=== PATIENT | female | born 1955 | race Caucasian/White ===

== ENCOUNTER 2020-05-03 09:35 | Day surgery (SDC) | payer OTHER ==
[~2020-05-03 09:35] MED LIST: Midazolam 1 MG/ML 2 ML SDV ONE; Propofol 200 MG/20 ML SDV ONE; fentaNYL 100 MCG/2 ML SDV ONE
[2020-05-03] MEDS ORDERED: Dextrose 5%-Lactated Ringers 1,000 ML IV SCH (10:15)
[2020-05-03] MEDS ORDERED: Propofol 200 MG/20 ML SDV ONE (11:50)
[2020-05-03 12:31] VITALS: PULSE 62
[2020-05-03] MEDS ORDERED: Ondansetron 4 MG Tab.DIS PO ONE (13:14)
[2020-05-03 13:35] VITALS: BP 144/86
--- NOTE | 2020-05-08 12:29 | OR ---
DATE OF PROCEDURE: 05/03/2020 SURGEON: Feliberto Coffey MD PREOPERATIVE DIAGNOSIS: Recurrent sigmoid colon diverticulitis. POSTOPERATIVE DIAGNOSIS: Left colonic diverticulosis with mild sigmoid colon diverticulitis. OPERATIVE PROCEDURE: Flexible colonoscopy. ANESTHESIA: IV sedation. INDICATIONS FOR PROCEDURE: A 64-year-old female presenting with some ongoing problems with sigmoid colon diverticulitis. This began as early as around [address] scan at that time showing acute diverticulitis. The patient reports that she has had 3 episodes of diverticulitis this year. Presently, has some very mild discomfort in the left lower quadrant. For diagnostic evaluation, the patient to undergo a colonoscopy. Potential risks including bleeding and perforation were discussed, and the patient wishes to proceed. DETAILS OF PROCEDURE: The patient was taken to the operating room and placed in a left lateral decubitus position. IV sedation was administered, after which the initial digital rectal exam was performed and was unremarkable. Colonoscope was passed into the rectum with retroflexion revealing uncomplicated hemorrhoidal columns. Scope was eventually passed to the level of the cecum. The prep was fairly good with only a small amount of liquid stool being present. The patient was noted to have quite extensive left colonic diverticulosis. In the midportion of the sigmoid colon, there was some edema and redness of the mucosa consistent with some smoldering inflammation, i.e. some smoldering diverticulitis. There was no purulence noted and no stricturing or other complications related to diverticular disease. The remainder of the examination was unremarkable with there being no areas of polyp formation or other signs of neoplasia. Scope was then withdrawn and the above findings reconfirmed, and the procedure was then concluded. The patient was taken to the recovery room in satisfactory condition. Plan will be to see the patient back on 05/09 and discuss treatment options. The patient appears to have a more or less possibly recurrent or perhaps persistent diverticulitis over the past years and may benefit from a segmental sigmoid colon resection. Feliberto Coffey MD /[id number]
== END 2020-05-03 13:58 | disposition home or self-care (01) ==
LOC: JP.SDS 09:35
PROVIDERS: ATTEND Surgery
DX: K57.32 Diverticulitis of large intestine without perforation or abscess without bleeding (principal); K64.9 Unspecified hemorrhoids
CPT/HCPCS: 45378; A9270; J2250; J2704; J3010; J7121

== ENCOUNTER 2023-05-04 06:17 | Day surgery (SDC) | payer MEDICARE ==
[2023-05-04 06:46] LABS: HEMATOCRIT 37.5 % (34.3-46.0); HEMOGLOBIN 12.5 g/dL (11.2-15.5); MEAN CORPUSCULAR HEMOGLOBIN 29.8 pg (31.6-35.5); MEAN CORPUSCULAR HGB CONC 33.3 g/dL (31.6-35.5); MEAN CORPUSCULAR VOLUME 89.3 fL (81.4-99.0); RED BLOOD CELL COUNT 4.2 M/uL (3.77-5.24); WHITE BLOOD CELL COUNT,WBC 5.7 K/uL (3.2-11.0)
[2023-05-04] MEDS ORDERED: Lactated Ringers 1,000 ML IV SCH (07:00)
[2023-05-04] MEDS ORDERED: Nozin Nasal Sanitizer NASBOTH SCH (07:00)
[2023-05-04 07:07] LABS: ALANINE AMINOTRANSFERASE,ALT 23 U/L (12-78); ALBUMIN 3.4 g/dL (3.4-5.0); ALKALINE PHOSPHATASE 28 U/L (46-116); ASPARTATE AMNIOTRANSFERASE,AST 14 U/L (15-37); BILIRUBIN TOTAL 0.5 mg/dL (0.2-1.0); BLOOD UREA NITROGEN,BUN 22 mg/dL (7-18); CALCIUM 8.9 mg/dL (8.5-10.1); CARBON DIOXIDE,CO2 29 mmol/L (21-32); CHLORIDE,CL 106 mmol/L (100-108); CREATININE 0.9 mg/dL (0.6-1.0); EST CRCL DRUG DOSING (CG) 50.86 mL/min; ESTIMATED GFR 71 mL/min (>60); GLUCOSE RANDOM 97 mg/dL (74-106); POTASSIUM,K 4.3 mmol/L (3.6-5.2); PROTEIN TOTAL,TP 6.8 g/dL (6.4-8.2); SODIUM,NA 141 mmol/L (140-148)
[2023-05-04] MEDS ORDERED: ceFAZolin 1 GM in Premix Bag 1 BAG IV ONE (07:15)
[2023-05-04] MEDS ORDERED: Midazolam 1 MG/ML 2 ML SDV ONE (07:16)
[2023-05-04] MEDS ORDERED: Propofol 200 MG/20 ML SDV ONE ×2 (07:16→08:51)
[2023-05-04] MEDS ORDERED: fentaNYL 100 MCG/2 ML SDV ONE ×2 (07:16→08:37)
[2023-05-04] MEDS ORDERED: Bupivacaine 0.5% 30 ML SDV ONE ×2 (07:16→07:20)
[2023-05-04] MEDS ORDERED: Acetaminophen/oxyCODONE 325-5 MG Tab PO PRN (10:45)
[2023-05-04 11:30] VITALS: BP 157/58; PULSE 66
== END 2023-05-04 11:37 | disposition home or self-care (01) ==
LOC: JP.SDS 06:17
PROVIDERS: ATTEND Specialist
DX: M75.111 Incomplete rotator cuff tear or rupture of right shoulder, not specified as traumatic (principal); M75.31 Calcific tendinitis of right shoulder; E03.9 Hypothyroidism, unspecified; E78.00 Pure hypercholesterolemia, unspecified; Z88.8 Allergy status to other drugs, medicaments and biological substances; E66.9 Obesity, unspecified
CPT/HCPCS: 29826; 29827; 36415; 80053; 85027; A9270; C1713; J0690; J2250; J2704; J3010; J3490; J7120

== ENCOUNTER 2025-02-24 20:09 | Emergency (ER) | payer MEDICARE ==
[2025-02-24 22:09] VITALS: BP 138/77; PULSE 76
== END 2025-02-24 22:05 | disposition home or self-care (01) ==
LOC: JP.ED 20:09
DX: S83.92XA Sprain of unspecified site of left knee, initial encounter (principal); E78.00 Pure hypercholesterolemia, unspecified; I10 Essential (primary) hypertension; K21.9 Gastro-esophageal reflux disease without esophagitis; E03.9 Hypothyroidism, unspecified; Z88.8 Allergy status to other drugs, medicaments and biological substances; Z79.890 Hormone replacement therapy; Z79.899 Other long term (current) drug therapy; Z88.6 Allergy status to analgesic agent; X50.0XXA Overexertion from strenuous movement or load, initial encounter; Y93.89 Activity, other specified; Y99.0 Civilian activity done for income or pay
CPT/HCPCS: 73562-26-LT; 73562-LT; 99283